=== PATIENT | female | born 1985 ===

== ENCOUNTER 2019-08-11 05:28 | Inpatient (IN) ==
--- NOTE | 2019-08-09 09:38 | Communication Note ---
Date of Service: August 09, 2019 Travel assessment/history reviewed - low risk at this time - will be reviewed the morning of surgery. No preop covid testing done.
--- NOTE | 2019-08-10 11:15 | History & Physical Report ---
Date of Service August 10, 2019 Assessment & Plan (1) Supervision of normal intrauterine in multigravida: (2) Previous delivery affecting : Patient to be admitted on 08/11/19 for planned repeat section. Instructions reviewed today. Risks, alternatives and complications reviewed and consent form reviewed and signed. Will plan to arrive for c/s in am. All questions answered. History of Present Illness Chief Complaint: planned section Primary Care Provider: NO PCP 33yo at 39+wks ega will present to L&D on 08/11/19 for planned repeat section. Patient seen in office 08/10/19 and denies leaking, bleeding or contractions. Good fm reported. She is nervous about c/s but excited to have baby. She declines tubal as her plans vasectomy. PNC c/b 1. Prior c/s x 2 2. First c/s B-richardson suture placed (twin delivery) PNL rhpos, ri, gbs neg GYNH: nl paps, no stds OBH: 34wk twin c/s, term repeat c/s All Active Problems (Updated 08/08/19 @ 11:21 by Fara Sheppard RN) Supervision of normal intrauterine in multigravida Previous delivery affecting Allergies Allergy/AdvReac Type Severity Reaction Status Date / Time Penicillins Allergy Intermediate Hives Verified 08/10/19 08:29 Sulfa (Sulfonamide Allergy Intermediate Hives Verified 08/10/19 08:29 Antibiotics) Home Medications Home Medications Medication Instructions Recorded Confirmed Type prenat.vits,miguel,[id number] 1 tab PO QAM 07/12/19 08/10/19 History Patient History Medical History (Updated 08/10/19 @ 11:14 by Nicole Delacruz MD, FACOG) Asthma WAS TOLD THIS BY PCP BUT PT HAS NO SYMPTOMS > NO INHALERS Cardiac murmur AFTER LAST C SECTION> SLIGHT tachycardia History of anesthesia reaction DURING LAST > BP WAS "A LITTLE HIGH" BUT IT WAS MANAGED BY ANESTHESIA Hx of migraines Hx of ovarian cyst JUST MONITORED Hx of varicella hemorrhage Scoliosis MILD Twins, both liveborn Surgical History (Updated 08/08/19 @ 11:21 by Fara Sheppard, ELEONORA) H/O section X2 [place] teeth removed Family History (Updated 08/08/19 @ 11:22 by Fara Sheppard RN) Father Hypertension Grandmother Diabetes Grandfather Diabetes Social History (Updated 07/12/19 @ 09:57 by Keli Pa) Preferred Language: Singaporean Communication Ability: Effective Beliefs That Will Affect Care: None marital status: marital status details: Lee Diego(34) [phone] Current Living Situation: Spouse Current Living Situation Comment: lives with and children current occupational status: employed current occupation: teacher Feels Safe at Home: Yes Smoking Status: Never smoker Second Hand Exposure: No ; Hx Alcohol Use: No Hx Substance Use: No Physical Exam Constitutional: WD/WN, vitals as above Gastrointestinal (Abdomen): Percussion/Palpation: abdomen soft (gravid); a bdomen nontender Musculoskeletal: nt calves. no edema Neurologic: grossly normal Psychiatric: A+Ox3, euthymic affect Coding Level of Care Code None Diagnoses Supervision of normal intrauterine in multigravida Z34.80 Previous delivery affecting O34.219
[2019-08-11] MEDS ORDERED: SODIUM CHLORIDE 0.9% 250 ML IV PRN (05:35)
[2019-08-11 05:58] LABS: Basophils # (auto) 0.03 K/uL (0-0.2); Basophils % (auto) 0.3 %; Eosinophils # (auto) 0.09 K/uL (0-0.5); Eosinophils % (auto) 0.8 %; Hematocrit (blood only) 39.1 % (37-47); Hemoglobin 12.9 g/dL (12.0-16.0); Immature Granulocytes # (auto) 0.05 K/uL (0.00-0.02); Immature Granulocytes % (auto) 0.4 %; Lymphocytes % (auto) 21.4 %; Mean Corpuscular Hemoglobin 29.3 pg (25-34); Mean Corpuscular Volume 88.9 fL (80-100); Mean Platelet Volume 10.3 fL (7.4-10.4); Monocytes # (auto) 0.87 K/uL (0.11-0.59); Monocytes % (auto) 7.4 %; Neutrophils # (auto) 8.14 K/uL (1.4-6.5); Neutrophils % (auto) 69.7 %; Platelet Count 190 K/uL (130-400); RDW Coefficient of Variation 13.8 % (11.5-14.5); RDW Standard Deviation 44.9 fL (36.4-46.3); White Blood Count 11.68 K/uL (4.8-10.8)
[2019-08-11] MEDS ORDERED: CITRIC ACID/SODIUM CITRATE 15 ML UDC PO SCH (06:00)
[2019-08-11] MEDS ORDERED: LACTATED RINGER'S 1,000 ML IV SCH (06:00)
[2019-08-11] MEDS ORDERED: CEFAZOLIN 2,000 MG in SYRINGE 0 ML IV STA (06:04)
--- NOTE | 2019-08-11 07:19 | History & Physical Bridge Note ---
Date of Service August 11, 2019 History & Physical Bridge Note I have examined the patient, reviewed the History & Physical and in the interval since the performance of the History & Physical I have noted the following changes of clinical significance: no changes noted
--- NOTE | 2019-08-11 07:24 | Anesthesiology Consultation ---
Date of Service August 11, 2019 Assessment & Plan (1) Encounter for pre-operative examination: Chart Review Chart Review: Acceptable Risk for Surgery and Patient NOT seen in Pre Admission Testing Consults Requested none ASA ASA2 Proposed Anesthesia Anesthesia Type: Spinal (+ Intrathecal narcotics) Risk / Benefits Reviewed With: PT / POA / Parent / Guardian, Accepts Plan and Informed Consent Obtained History Surgery Operation Date: 08/11/19 07:30 Proposed Procedures p Section in LD - Nicole Delacruz MD, FACOG Height/Weight Height: 5 ft 6 in Weight: 83.461 kg Allergies Allergy/AdvReac Type Severity Reaction Status Date / Time Penicillins Allergy Intermediate Hives Verified 08/10/19 08:29 Sulfa (Sulfonamide Allergy Intermediate Hives Verified 08/10/19 08:29 Antibiotics) Medications Home Medications Medication Instructions Recorded Confirmed Last Taken prenat.vits,miguel,[id number] 1 tab PO QAM 07/12/19 08/10/19 Unknown NPO Date Last Intake of Fluids: 08/10/19 Time Last Intake of Fluids: 18:00 Date Last Intake of Solids: 08/10/19 Time Last Intake of Solids: 18:00 Past Medical History Medical History Asthma WAS TOLD THIS BY PCP BUT PT HAS NO SYMPTOMS > NO INHALERS Cardiac murmur AFTER LAST C SECTION> SLIGHT tachycardia History of anesthesia reaction DURING LAST > BP WAS "A LITTLE HIGH" BUT IT WAS MANAGED BY ANESTHESIA Hx of migraines Hx of ovarian cyst JUST MONITORED Hx of varicella hemorrhage Scoliosis MILD Twins, both liveborn Exercise / Class Metabolic Activity II 4-5 Yardwork/Stairs/Walk up hill Past Family History Family History Father Hypertension Grandmother Diabetes Grandfather Diabetes Past Surgical History Surgical History H/O section X2 [place] teeth removed Past Anesthesia History No Hx of Anesthesia Complications and No Family Hx of Anesthesia Complications History of PONV No Hx of PONV and No Hx of Motion Sickness Social History Smoking Status: Never smoker Do You Dip or Chew Tobacco: No Hx Alcohol Use: No Hx Substance Use: No substance use type: does not use Physical Exam Vital Signs Last Vital Signs Temp 36.7 C 08/11/19 07:03 Pulse 101 H 08/11/19 07:02 Resp 20 08/11/19 07:03 BP 119/79 08/11/19 05:43 ENMT Mouth: no dentition abnormality Thyromental Distance: > or= 3.5 Finger Breadths Mallampati Class: II Neck normal visual inspection Respiratory normal respiratory effort Auscultation: lungs clear to auscultation bilaterally Cardiovascular Rate/Rhythm: regular rate and regular rhythm Psychiatric Orientation: alert Testing Laboratory Results 08/11/19 05:47 Blood Type O Positive 08/11/19 05:47 Antibody Screen NEGATIVE 08/11/19 05:47
[2019-08-11] MEDS ORDERED: MoRPHine SULFATE PF 1 MG/ML 10 ML AMP/VIAL ONE (07:25)
[2019-08-11] MEDS ORDERED: fentaNYL citrate 100 MCG/2 ML VIAL ONE (07:25)
[2019-08-11] MEDS ORDERED: OXYTOCIN 10 UNITS/ML VIAL ONE (08:08)
[2019-08-11] MEDS ORDERED: KETOROLAC 30 MG/ML VIAL ONE (08:08)
[2019-08-11] MEDS ORDERED: ONDANSETRON INJ 2 MG/ML 2 ML VIAL ONE (08:08)
[2019-08-11] MEDS ORDERED: DIPHTHERIA/TETANUS/PERTUSSIS 0.5 ML SYR/VIAL IM ONE (08:43)
[2019-08-11] MEDS ORDERED: HYDROCORTISONE ACETATE 25 MG SUPP PR PRN (08:43)
[2019-08-11] MEDS ORDERED: SUPERCREAM 0.870% 15 GM JAR EXT PRN (08:43)
[2019-08-11] MEDS ORDERED: SENNA 8.6 MG TAB PO PRN (08:43)
[2019-08-11] MEDS ORDERED: MAGNESIUM HYDROXIDE SUSP 30 ML UDC PO PRN (08:43)
[2019-08-11] MEDS ORDERED: BENZOCAINE 20% AER SPR 82.5 GM CAN EXT PRN (08:43)
--- NOTE | 2019-08-11 08:43 | Post Operative Brief Note ---
PG Immediate Post Op with CF Date of Surgery August 11, 2019 Pre & Post Diagnosis Operation Date: 08/11/19 07:30 <No data on this case meets the specified criteria> 1. 39 week iup 2. Prior section x 2, desires repeat section I identified the patient and participated in the time-out.: Yes Procedure Operation Date: 08/11/19 07:30 <No data on this case meets the specified criteria> Repeat Low Transverse Section Surgeon Nicole Delacruz MD, FACOG Piece Marker [employer] Kavon Estimated Blood Loss 500 Findings Consistent with Post-Op Diagnosis (viable female apgars 8,8, uterus adhered to anterior abdominal wall/muscles. peritonealized. ovaries and tubes not seen, uterus could not be exteriorized. ) Fluids 1500 Specimens Specimen Description: cord blood and cord gases Drains Stout Catheter Anesthesia Type Spinal Complications none Disposition Accompanied Patient To Recovery: No Disposition: L&D
[2019-08-11] MEDS ORDERED: DiphenhydrAMINE HCL 50 MG/ML VIAL IV PRN (08:55)
[2019-08-11] MEDS ORDERED: ONDANSETRON INJ 2 MG/ML 2 ML VIAL IV PRN (08:55)
[2019-08-11] MEDS ORDERED: PROMETHAZINE HCL 6.25 MG in SODIUM CHLORIDE 0.9% 50 ML IV PRN (08:55)
[2019-08-11] MEDS ORDERED: NALOXONE HCL 1 MG in SODIUM CHLORIDE 0.9% 1000ML 1,000 ML IV PRN (08:55)
[2019-08-11] MEDS ORDERED: NALOXONE HCL 0.4 MG/1 ML VIAL/CARP IV PRN (08:55)
[2019-08-11] MEDS ORDERED: ePHEDrine sulfate 50 MG/ML AMP IV PRN (08:55)
[2019-08-11] MEDS ORDERED: HYDROmorphone INJ 1 MG/ML SYRINGE IV PRN (08:55)
[2019-08-11] MEDS ORDERED: LACTATED RINGER'S 500 ML IV PRN (08:55)
[2019-08-11] MEDS ORDERED: MoRPHine SULFATE PF 1 MG/ML 10 ML AMP/VIAL INT SPINAL ONE (08:55)
[2019-08-11] MEDS ORDERED: NALBUPHINE HCL INJ 10 MG/ML AMP IV PRN (08:55)
[2019-08-11] MEDS ORDERED: MoRPHine SULFATE 4 MG/ML 1 ML CARP\\VIAL IV PRN (08:55)
[2019-08-11] MEDS ORDERED: NALOXONE HCL 0.08 MG in SYRINGE 1.8 ML IV PRN (08:55)
[2019-08-11] MEDS ORDERED: DC INTRASPINAL MORPHINE SCH (09:00)
[2019-08-11] MEDS ORDERED: SODIUM CHLORIDE 0.9% 1000ML 1,000 ML IV SCH (09:00)
[2019-08-11] MEDS ORDERED: NO NARCOTICS OR SEDATIVES SCH (09:00)
[2019-08-11 09:16] LABS: Base Excess Cord Arterial Bld -2.4 mEq/L (-9-1.8); CO2 Cord Arterial Blood 50 mmHg (39.1-73.5); HCO3 Cord Arterial Blood 24 mmol/L (19.7-28.5); Oxygen Sat Cord Arterial Blood < 60.0 % (<60); PO2 Cord Arterial Blood 21 mmHg (4.1-31.7); pH Cord Arterial Blood 7.31 (7.1-7.38)
--- NOTE | 2019-08-11 09:17 | Operative Report ---
PG Post Operative Report Pre & Post Diagnosis Operation Date: 08/11/19 07:30 1. 39 week iup 2. Prior section x 2, desires repeat section I identified the patient and participated in the time-out.: Yes Procedure Operation Date: 08/11/19 07:30 <No data on this case meets the specified criteria> Repeat Low Transverse Section Surgeon Nicole Delacruz MD, FACOG Condenser Operator Kavon Estimated Blood Loss 500 Findings Consistent with Post-Op Diagnosis (viable female, apgars 8,8. uterus adhered to anterior abdominal wall, unable to enter peritoneal cavity, ovaries and tubes not seen. ) Fluids 1500 Specimens cord blood and cord gases Drains ruiz Anesthesia Type Spinal Complications none Disposition Accompanied Patient To Recovery: No Disposition: L&D Indications 33yo at 39+wks ega for planned section, with history of prior section x 2. She declined tubal. Her course was otherwise uncomplicated Description of Procedure The patient was taken to the operating room and identified. After adequate anesthesia was obtained, she was placed in the supine position with a leftward tilt on the operating table and prepped and draped in the usual sterile fashion. A ruiz catheter had already been placed. The knife was used to create a Pfannensteil skin incision that was carried down to the underlying layer of fascia. The fascia was nicked in the midline and this opening was extended laterally using Parkinson scissors. Ilda clamps were placed on the superior and inferior aspect of the fascial incision tenting it upward and the underlying rectus muscles were dissected off the overlying fascia both sharply and bluntly using Parkinson scissors. The rectus muscles were bluntly in the midline. The peritoneal cavity was not easily entered into. The peritoneum was seemingly elevated but no separation or plan able to be made. The uterus was deemed to be extraperitoneal at this point and scarred to anterior abdominal wall. The bladder was held back with bladder blade and a hysterotomy was made easily as the uterine muscle was extremely thin. This opening was stretched. The amniotic sac was ruptured for clear fluid. The operators hand was placed through the hysterotomy and the bladder blade was removed. The head was elevated and flexed and with fundal pressure the head was delivered. The shoulders and body were rapidly delivered. The cord was clamped and cut and the 's mouth and nares were bulb suction. The infant was handed off to the awaiting pediatricians. Cord blood was obtained. Cord gases were obtained. The placenta was manually expressed. The uterus was unable to be exteriorized. It was cleared of all clots and debris in situ. Dilute IV Pitocin was begun. The uterine tone was improving. The hysterotomy was closed in a running interlocking fashion using 0 Vicryl. Interrupted figure of eight sutures of 2-0 and 3-0 vicryl were used across the hysterotomy and sheared uterine muscle and serosa to obtain hemostasis. The hysterotomy was hemostatic. The pelvis was irrigated. The hysterotomy was reinspected and noted to be hemostatic. The fascia was then closed in running fashion using 0 Vicryl. The subcutaneous fat was copiously irrigated and reapproximated using 2-0 chromic. The skin was closed in a subcuticular fashion using 4-0 Vicryl. At this point the procedure was terminated. The patient was transferred to the recovery room in stable condition. All sponge, lap and needle counts are correct x2. I attest to the content of the Intraoperative Record and any orders documented therein. Any exceptions are noted below.
[2019-08-11 09:18] LABS: Cord Venous Blood HCO3 24 mmol/L (18.4-26.8); Cord Venous Blood PCO2 44 mmHg (30.4-57.2); Cord Venous Blood PO2 29 mmHg (14.1-43.3); Cord Venous Blood pH 7.35 (7.20-7.44); O2 Saturation Cord Venous Bld < 60.0 % (<68)
[2019-08-11] MEDS: MEPERIDINE HCL 25 MG/ML CARP/VIAL IV PRN ×2 (09:44→10:00)
[2019-08-11] MEDS: OXYTOCIN 20 UNITS in LACTATED RINGER'S 1,000 ML IV SCH ×2 (11:02→19:25)
--- NOTE | 2019-08-11 12:39 | Anesthesiology Progress Note ---
Date of Service August 11, 2019 Anesthesia Post Procedure Vital Signs Vital Signs: Temp Pulse Pulse Resp BP BP Pulse Ox 08/11/19 11:22 94 H 95 08/11/19 11:20 88 113/81 08/11/19 11:17 90 95 08/11/19 11:12 94 H 97 08/11/19 11:07 97 H 96 08/11/19 11:02 101 H 98 08/11/19 10:57 80 99 08/11/19 10:52 36.8 C 87 96 H 20 126/58 L 126/58 L 98 08/11/19 10:47 89 98 08/11/19 10:42 85 95 08/11/19 10:37 95 H 95 08/11/19 10:32 87 96 08/11/19 10:27 88 96 08/11/19 10:22 102 H 95 08/11/19 10:20 36.6 C 83 83 16 117/66 117/66 96 08/11/19 10:17 88 96 08/11/19 10:12 90 96 08/11/19 10:07 90 95 08/11/19 10:02 78 97 08/11/19 09:57 86 98 08/11/19 09:52 85 97 08/11/19 09:50 36.4 C L 91 H 91 H 20 118/70 118/70 97 08/11/19 09:47 83 99 08/11/19 09:42 92 H 98 08/11/19 09:41 80 80 18 112/58 L 112/58 L 98 08/11/19 09:37 93 H 98 08/11/19 09:32 88 99 08/11/19 09:30 78 78 20 126/70 126/70 97 08/11/19 09:27 86 97 08/11/19 09:22 85 98 08/11/19 09:20 80 20 L 18 103/71 103/71 99 08/11/19 09:17 99 H 98 08/11/19 09:12 85 97 08/11/19 09:11 86 86 16 112/65 112/65 100 08/11/19 09:04 90 100 08/11/19 09:00 86 86 20 111/55 L 111/55 L 100 08/11/19 08:59 88 100 08/11/19 08:54 90 100 08/11/19 08:52 89 121/64 08/11/19 08:49 36.7 C 88 99 H 20 135/86 135/86 100 08/11/19 07:03 36.7 C 20 08/11/19 07:02 101 H 08/11/19 05:43 36.6 C 103 H 18 119/79 08/11/19 05:38 36.6 C 103 H 18 119/79 Pain Intensity Abdomen: Pain Intensity: 2 Transfer of Care Handoff Completed per policy Notes Mental Status: alert / awake / arousable Patient Amnestic to Procedure: Yes Nausea / Vomiting: adequately controlled Pain: adequately controlled Airway Patency, RR, SpO2: stable & adequate BP & HR: stable & adequate Hydration State: stable & adequate Anesthetic Complications: no major complications apparent
[2019-08-11] MEDS: SIMETHICONE 80 MG CHEW PO SCH ×3 (13:20→21:23)
[2019-08-11] MEDS: KETOROLAC 30 MG/ML VIAL IV PRN ×2 (14:26→20:22)
[2019-08-11] MEDS: DOCUSATE SODIUM 100 MG CAP PO SCH (20:28)
[2019-08-12] MEDS ORDERED: LACTATED RINGER'S 1,000 ML IV SCH (00:45)
[2019-08-12] MEDS: KETOROLAC 30 MG/ML VIAL IV PRN (02:15)
[2019-08-12] MEDS ORDERED: MEPERIDINE HCL 50 MG/ML CARP IV PRN (02:55)
[2019-08-12] MEDS ORDERED: PROMETHAZINE HCL 25 MG in SODIUM CHLORIDE 0.9% 50 ML IV PRN (02:55)
[2019-08-12] MEDS ORDERED: DiphenhydrAMINE HCL 50 MG/ML VIAL IV PRN (02:55)
[2019-08-12] MEDS ORDERED: KETOROLAC 30 MG/ML VIAL IV PRN (02:55)
[2019-08-12] MEDS ORDERED: ONDANSETRON INJ 2 MG/ML 2 ML VIAL IV PRN (02:55)
[2019-08-12] MEDS: OXYCODONE/ACETAMINOPHEN 5mg/325mg TAB PO PRN ×5 (04:22→21:36)
[2019-08-12 05:42] LABS: Basophils # (auto) 0.01 K/uL (0-0.2); Basophils % (auto) 0.1 %; Eosinophils % (auto) 0.7 %; Hematocrit (blood only) 33.7 % (37-47); Hemoglobin 11.5 g/dL (12.0-16.0); Immature Granulocytes # (auto) 0.06 K/uL (0.00-0.02); Immature Granulocytes % (auto) 0.4 %; Lymphocytes # (auto) 1.91 K/uL (1.2-3.4); Mean Corpuscular Hemoglobin 29.9 pg (25-34); Mean Corpuscular Hgb Conc 34.1 g/dL (32-36); Mean Corpuscular Volume 87.5 fL (80-100); Mean Platelet Volume 9.9 fL (7.4-10.4); Monocytes # (auto) 0.96 K/uL (0.11-0.59); Neutrophils # (auto) 10.65 K/uL (1.4-6.5); Neutrophils % (auto) 77.8 %; Platelet Count 182 K/uL (130-400); RDW Coefficient of Variation 13.6 % (11.5-14.5); RDW Standard Deviation 43.3 fL (36.4-46.3); Red Blood Count 3.85 M/uL (4.2-5.4); White Blood Count 13.69 K/uL (4.8-10.8)
--- NOTE | 2019-08-12 07:07 | Obstetrical Progress Note ---
Date of Service August 12, 2019 Assessment & Plan Admission and Anticipated Discharge Date Admission Date: August 11, 2019 33 yo s/p rC/S w/ history of prior C/Sx2 doing well, GBS -, O+, feels well today. Eating well, voiding well, ambulating well. Pain well controlled. Will follow up at 6 weeks. Day #:: 1 Subjective Ambulation: ambulating normally Voiding: no voiding problems Diet Tolerance:: fluid diet Lochia:: light Feeding Type:: breast feeding going well doing well, denies complaints. Physical Exam Constitutional: WD/WN, vitals as above Respiratory: normal respiratory effort, lungs clear to auscultation Cardiovascular: Rate/Rhythm: regular rate and regular rhythm Gastrointestinal (Abdomen): Inspection/Auscultation: abdomen normal to inspection Percussion/Palpation: abdomen soft fundus firm 1 cm below umbilicus Musculoskeletal: nt calves no edema Neurologic: grossly normal Psychiatric: A+Ox3, euthymic affect Results & Data ([facility]) Vital Signs (Past 12 Hours) Vital Signs Temp Pulse Resp BP Pulse Ox 08/12/19 03:40 36.6 C 75 18 105/70 100 08/12/19 02:15 18 98 08/12/19 01:10 20 100 08/12/19 00:10 20 100 08/11/19 23:30 36.6 C 81 20 109/71 99 08/11/19 22:00 18 94 08/11/19 21:15 18 96 08/11/19 20:30 18 98 08/11/19 19:30 36.4 C L 80 18 111/73 100 Resident Activity Tracking Resident Involvement: Resident Care Provided Care Provided: Adult Hospital Medicine
[2019-08-12] MEDS: DOCUSATE SODIUM 100 MG CAP PO SCH ×2 (08:19→20:23)
[2019-08-12] MEDS: SIMETHICONE 80 MG CHEW PO SCH ×4 (08:19→20:23)
[2019-08-12] MEDS: PRENATAL VITAMIN 1 TAB PO SCH (08:19)
[2019-08-12] MEDS: FERROUS SULFATE 325 MG TAB PO SCH (08:19)
[2019-08-12] MEDS: IBUPROFEN 600 MG TAB PO PRN ×4 (08:19→21:35)
[2019-08-12] MEDS ORDERED: bisacodyL 5 MG TABEC PO SCH (20:00)
[2019-08-13] MEDS: IBUPROFEN 600 MG TAB PO PRN ×2 (04:01→08:46)
[2019-08-13] MEDS: OXYCODONE/ACETAMINOPHEN 5mg/325mg TAB PO PRN ×2 (04:01→08:46)
[2019-08-13 06:23] LABS: Hematocrit (blood only) 34.5 % (37-47); Hemoglobin 11.7 g/dL (12.0-16.0)
--- NOTE | 2019-08-13 06:48 | Obstetrical Progress Note ---
Date of Service August 13, 2019 Assessment & Plan Admission and Anticipated Discharge Date Admission Date: August 11, 2019 33 yo s/p rCS @ 39.1 hx. of prior C/S -POD# 2 - GBS -, Blood Type O+ - Feels well today. Eating well, voiding well, ambulating well. - Pain well controlled. - Routine post operative care - After discharge will have 6 week followup. Supervising Physician Co-Signing Physician Notes I have reviewed the resident's note and examined the patient myself, and agree with the note above. Subjective Jitendra Diego is doing well this morning. She is ambulating, voiding, passing gas and eating a regular diet without nausea. Her pain is 5/10 after walking around the room. She is and feels that it is going better. Review of Systems Review of Systems: Denies fever, chills, sweats Denies shortness of breath, difficulty breathing, chest pain, palpitations, chest pressure. Denies breast pain. Denies dysuria. Denies headache. Physical Exam Physical Exam: General: Alert, oriented. No acute distress. Cardiac: Regular rate and rhythm, no murmurs/rubs/gallops. Respiratory: Clear to auscultation anterior and posteriorly, no wheezes/rales/rhonchi. No increased work of breathing. Symmetrical chest rise. No respiratory distress. Abdomen: Soft, nontender, nondistended. Bowel sounds present. Uterus: Uterine fundus firm, palpable 1 cm below umbilicus. Lower Extremities: No lower extremity edema or swelling. No deep calf pain. Tim's negative bilaterally. bandage intact, clean, dry. No warmth, erythema, discharge visible. Results & Data ([facility]) Vital Signs (Past 12 Hours) Vital Signs Temp Pulse Resp BP Pulse Ox 08/12/19 23:30 36.6 C 87 16 119/76 96 08/12/19 20:15 36.4 C L 96 H 17 116/77 97 Resident Activity Tracking Resident Involvement: Resident Care Provided Care Provided: OB Delivery
[2019-08-13] MEDS: DOCUSATE SODIUM 100 MG CAP PO SCH (08:43)
[2019-08-13] MEDS: FERROUS SULFATE 325 MG TAB PO SCH (08:43)
[2019-08-13] MEDS: PRENATAL VITAMIN 1 TAB PO SCH (08:43)
[2019-08-13] MEDS: SIMETHICONE 80 MG CHEW PO SCH (08:43)
[2019-08-13] MEDS ORDERED: bisacodyL 10 MG SUPP PR PRN (08:44)
[2019-08-13 09:05] VITALS: PULSE 90; TEMP 98.1; O2SAT 98
[2019-08-13 09:06] VITALS: BP 119/72
--- NOTE | 2019-08-16 13:31 | Discharge Summary ---
Date of Service Day of admission 08/11/19 Day of discharge 08/13/19 Admission HPI Per Admitting Provider 33yo at 39+wks egpriscilla will present to L&D on 08/11/19 for planned repeat section. Patient seen in office 08/10/19 and denies leaking, bleeding or contractions. Good fm reported. She is nervous about c/s but excited to have baby. She declines tubal as her plans vasectomy. PNC c/b 1. Prior c/s x 2 2. First c/s B-richardson suture placed (twin delivery) PNL rhpos, ri, gbs neg GYNH: nl paps, no stds OBH: 34wk twin c/s, term repeat c/s Admission diagnoses: 1. 39 week iup 2. Prior c/s x 2, desires repeat c/s Discharge diagnoses: 1. same 2. Pelvic adhesions. see op note. Discharge Data Consultations 08/11/19 05:31 Consult Anesthesiology Stat Procedures Performed Operation Date: 08/11/19 07:30 Actual Procedures Repeat Low Transverse Section Hospital Course (1) Supervision of normal intrauterine in multigravida: (2) Previous delivery affecting : The patient was admitted and underwent the above stated procedure without incident. See operative note for details. The uterus was adhesed to anterior abdominal wall. Patient post op course and recovery was unremarkable. She was tolerating a regular diet, voiding, ambulating and had pain control with oral meds and was stable to go home on her postop day #2. She was given appropriate pain med prescriptions and d/c instructions. Plan 6wk followup. Post operative hgb was 11.7. Coding Level of Care Code None Diagnoses Supervision of normal intrauterine in multigravida Z34.80 Previous delivery affecting O34.219
== END 2019-08-13 10:51 | disposition home or self-care (01) | DRG 788 ==
LOC: 4S1 05:28 → EDSTATUS 07:30 → 4S2 12:44